=== PATIENT | female | born 1990 | race Two or more races ===

== ENCOUNTER 2017-12-25 22:29 | Observation (INO) | payer SELFPAY ==
[~2017-12-25] VITALS: Ht 165.1 cm; Wt 63.5 kg
[~2017-12-25 22:29] MED LIST: ACET-2007 PO; LOR5/325 PO; Lanolin TP; NITR-105 PO; PHEN200T32 PO; PREN-75 PO; TUCKS TP
[2017-12-25 23:40] LABS: PLATELET COUNT, AUTOMATED 239 K/uL (150-450)
[2017-12-26] MEDS: DLR(*) 1000 ML BAG 1,000 ML IV SCH ×4 (00:05→13:50)
[2017-12-26] MEDS ORDERED: FLUSH 10 ML SYR IVP PRN (00:10)
[2017-12-26] MEDS: FERROUS SULFATE 325 MG TAB PO SCH ×3 (00:47→14:00)
[2017-12-26 00:59] VITALS: BP 97/52; Ht 165.1 cm; Wt 63.5 kg
[2017-12-26] MEDS ORDERED: MULTIVITAMINS (PRENATAL) TAB PO SCH (09:00)
[2017-12-26 09:16] LABS: PLATELET COUNT, AUTOMATED 208 K/uL (150-450)
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
--- NOTE | 2017-12-26 11:20 | RADIOLOGY IMAGING REPORT ---
FACILITY: [facility] PATIENT NAME: Luigi Olmos : 1990 MR: [id number] V: [id number] EXAM DATE: ORDERING PHYSICIAN: RE VU TECHNOLOGIST: Location: [facility] Patient: Luigi Olmos : 1990 Visit/Account:[id number] Date of Sevice: 12/26/2017 Obstetrical ultrasound, greater than 14 weeks. HISTORY: Size and date discrepancy. COMPARISON: None. Number of living intrauterine fetuses: 1. position: Cephalic. Amniotic fluid volume: Normal. PILY: 12.6 cm. heart rate: 149 bpm. Placenta: Right lateral, fundal, anterior. Placenta previa: No. Distance from os to edge placenta: Not measured. BPD: 8.2 cm, 32 weeks 6 days. Head circumference: 29.3 cm, 32 weeks 3 days. Abdominal circumference: 26.8 cm, 31 weeks 0 days. Femur length: 6.4 cm, 33 weeks 0 days. Average age by ultrasound: 32 weeks 3 days. Estimated Weight: 1839 g plus/-269 g. Cervical length: 4.2 cm. A anatomical survey was not performed at this time. The maternal cervix is closed. The maternal ovaries and pelvic vessels are not well visualized. IMPRESSION: Single live intrauterine fetus, 32 weeks 3 days by ultrasound criteria with appropriate size for date s. A anatomical survey was not performed at this time. Results were discussed with RE VU at 12/26/2017 11:14 AM. Report Dictated By: Miki Carolina MD at 12/26/2017 11:05 AM Report E-Signed By: Miki Carolina MD at 12/26/2017 11:15 AM WSN:[id number]
[2017-12-26] MEDS ORDERED: PREN-127 PO (12:48)
[2017-12-26] MEDS ORDERED: DOCU100C49 PO (12:49)
[2017-12-26] MEDS ORDERED: FERR325T24 PO (12:49)
== END 2017-12-26 12:50 | disposition home or self-care (01) ==
LOC: OB 22:29
PROVIDERS: ADMIT Obstetrics & Gynecology; ATTEND Obstetrics & Gynecology
DX: O99.013 Anemia complicating pregnancy, third trimester (principal); R42 Dizziness and giddiness; O26.843 Uterine size-date discrepancy, third trimester; R53.1 Weakness; Z3A.32 32 weeks gestation of pregnancy
CPT/HCPCS: 36415; 59025; 76805; 84443; 85025; G0378; G0379

== ENCOUNTER 2018-01-23 17:39 | Outpatient (CLI) | payer MEDICAID ==
[~2018-01-23] VITALS: Ht 167.6 cm; Wt 64.9 kg
[~2018-01-23 17:39] MED LIST changes: +DOCU100C49 PO; +FERR325T24 PO; +PREN-127 PO
[2018-01-23] MEDS ORDERED: LR(*) 1000 ML BAG 1,000 ML IV PRN (18:07)
[2018-01-23] MEDS ORDERED: ACETAMINOPHEN 500 MG TAB PO ONE (18:10)
[2018-01-23 18:30] VITALS: BP 145/61; Ht 167.6 cm; Wt 64.9 kg
[2018-01-23 18:59] VITALS: BP 114/67
[2018-01-23] MEDS ORDERED: LR(*) 1000 ML BAG 1,000 ML IV SCH (19:40)
[2018-01-23] MEDS ORDERED: APAP/HYDROCODONE 325/5 TAB PO ONE (21:45)
== END 2018-01-23 22:45 | disposition home or self-care (01) ==
LOC: UNDOADMIN 17:39 → OB 17:39 → L&D 17:39 → UNDODISIN 22:45 → L&D 22:45 → EDSTATUS 01-24 16:24
PROVIDERS: ATTEND Student in an Organized Health Care Education/Training Program
DX: O47.03 False labor before 37 completed weeks of gestation, third trimester (principal); Z3A.36 36 weeks gestation of pregnancy
CPT/HCPCS: 81001; G0463; J7120; 99213

== ENCOUNTER 2018-01-25 01:47 | Outpatient (CLI) | payer SELFPAY ==
[2018-01-23 18:30] VITALS: BMI 23.1
[2018-01-25 02:30] VITALS: BP_SYST 118; BP_SYST 119; BP_DIAS 79
[2018-01-25 04:33] LABS: PLATELET COUNT, AUTOMATED 179 K/uL (150-450)
[2018-01-26] MEDS ORDERED: LEVO50TA86 PO (02:19)
== END 2018-01-25 04:42 | disposition home or self-care (01) ==
LOC: OB 01:47 → L&D 01:47 → OB 01:47 → UNDOADMOB 01:47 → UNDODISOB 04:42 → L&D 04:42 → EDSTATUS 01-27 11:52
PROVIDERS: ATTEND Student in an Organized Health Care Education/Training Program
DX: O47.1 False labor at or after 37 completed weeks of gestation (principal); Z3A.37 37 weeks gestation of pregnancy
CPT/HCPCS: 36415; 81001; 85025; 86592; 86703; 86850; 86900; 86901; 87081; 99213; G0378; G0379

== ENCOUNTER 2018-01-25 23:02 | Observation (INO) | payer SELFPAY ==
[2018-01-23 18:30] VITALS: BMI 23.1
[2018-01-25] MEDS ORDERED: LR(*) 1000 ML BAG 1,000 ML IV PRN (23:11)
[2018-01-25 23:30] VITALS: BP 127/77
[2018-01-26] MEDS ORDERED: LEVO50TA86 PO (02:19)
== END 2018-01-26 05:30 | disposition home or self-care (01) ==
LOC: OB 23:02
PROVIDERS: ADMIT Obstetrics & Gynecology; ATTEND Obstetrics & Gynecology
DX: O47.1 False labor at or after 37 completed weeks of gestation (principal); Z3A.37 37 weeks gestation of pregnancy
CPT/HCPCS: 59025; G0378; G0379

== ENCOUNTER 2018-02-08 07:55 | Inpatient (IN) | payer SELFPAY ==
[2018-01-23 18:30] VITALS: Ht 167.6 cm
[~2018-02-08 07:55] MED LIST changes: +LEVO50TA86 PO
[2018-02-08 08:15] VITALS: BP 135/89
[2018-02-08] MEDS ORDERED: FENTANYL/ROPIVACAINE 100 ML BAG EPI PRN (08:25)
[2018-02-08] MEDS ORDERED: EPIDURAL KEYS XX PRN (08:25)
[2018-02-08] MEDS ORDERED: FAMOTIDINE(*) 20MG/50ML PREMIX 50 ML IVPB PRN (08:25)
[2018-02-08] MEDS ORDERED: LR(*) 1000 ML BAG 1,000 ML IV SCH (08:25)
[2018-02-08] MEDS ORDERED: OXYTOCIN 30 UNIT/D5LR 500 ML 500 ML IV PRN (08:25)
[2018-02-08] MEDS ORDERED: ePHEDrine 25 MG/5 ML DISP.SYR IVP PRN (08:25)
[2018-02-08] MEDS ORDERED: BUPIVACAINE 0.25% MPF INJ EPI PRN (08:25)
[2018-02-08] MEDS ORDERED: LIDOCAINE 1% LOCAL 300 MG/30ML INJ PRN (08:25)
[2018-02-08] MEDS ORDERED: fentaNYL CITR 100 MCG/2 ML AMP IVP PRN (08:25)
[2018-02-08] MEDS ORDERED: fentaNYL CITR 100 MCG/2 ML AMP IT PRN (08:25)
[2018-02-08] MEDS ORDERED: LIDOCAINE/PF 2% 200MG/10ML AMP 200 MG/10 ML AMPUL EPI PRN (08:25)
[2018-02-08] MEDS ORDERED: FLUSH 10 ML SYR IVP PRN (08:25)
[2018-02-08] MEDS ORDERED: LIDOCAINE/SOD BICARB 8.4% SYR SC PRN (08:25)
[2018-02-08] MEDS ORDERED: METOCLOPRAMIDE 10 MG/2 ML SDV IVP PRN (08:25)
[2018-02-08] MEDS ORDERED: LR(*) 1000 ML BAG 1,000 ML ONE (08:30)
[2018-02-08 08:40] LABS: PLATELET COUNT, AUTOMATED 205 K/uL (150-450)
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
--- NOTE | 2018-02-08 09:07 | Procedure Note ---
Anesthetic Placement Note Anesthesia Plan: SAB Permit for Anesthesia Signed: Yes Anesthesia Technique: Patient Sitting Anesthesia Prep: Chlorhexidine Interspace: L 3-4 Local Anesthetic: 1% Lidocaine Amount Local - cc's: 1.5 Anesthesia Needle: 17g Thomas/Orionff Anesthesia Attempts: 1 Loss of Resistance: Air Intrathecal Needle: 27 Gauge Pencan Cerebral Spinal Fluid: Yes, Clear Anesthesia Tray: Lot Number ([id number]), Expiration Date (2019-03-15), Reference Number ([id number]) Comment: Pt moved from 5 to complete in 30 minutes. Therefore SAB done. Good relief. Anesthesia Medications: Intrathecal Dose: mcg Fentanyl (50), mg Marcaine MPF (0.25) Complications: None ZULAY MEDRANO CRNA Feb 08, 2018 09:07
[2018-02-08] MEDS ORDERED: GLYCERIN/WITCH HAZEL LEAF 1 PK TP PRN (09:45)
[2018-02-08] MEDS ORDERED: HYDROCORTISONE 2.5% CR 30GM TB PR PRN (09:45)
[2018-02-08] MEDS ORDERED: LANOLIN OINT 7 GM TUBE TP PRN (09:45)
[2018-02-08] MEDS ORDERED: MAGNESIUM HYDROXIDE* 30ML UDCP PO PRN (09:45)
[2018-02-08] MEDS ORDERED: BENZOCAINE 20% 60 ML BTL TP PRN (09:45)
[2018-02-08] MEDS ORDERED: INFLUENZA VIRUS VAC 0.5 ML SYR IM ONLY ONE (09:45)
--- NOTE | 2018-02-08 09:46 | Anesthesia OB Pre-Anes Eval ---
History of Present Illness Anesthesia Start Date: Feb 08, 2018 Anesthesia Start Time: 08:40 OB Anesthesia Diagnosis: spontaneous labor EDC: Feb 14, 2018 : 4 Para: 2 Result Diagram: 02/08/18 0824 Weight (Pounds): 143 BMI Calculated: 23.08 Past Medical History Medical History: no pertinent history Surgical History: other (unknown) Previous Anesthesia: other (unknown) Attended Childbirth Classes?: Other (unknown) Hx Anesthesia Reactions: No Home Meds Reported Medications Levothyroxine Sodium (LEVOTHYROXINE SODIUM) 50 Mcg Tablet, 25 MCG PO QDAY, TAB 01/26/18 Allergies: Coded Allergies: ibuprofen (Verified Allergy, Mild, rash, 12/13/16) kiwi (Verified Allergy, Mild, rash, 12/13/16) michael (Verified Allergy, Mild, rash, 12/13/16) strawberry (Verified Allergy, Mild, rash, 12/13/16) Uncoded Allergies: egg plant (Allergy, Mild, rash, 12/13/16) Anesthesia OB ROS GI ROS: clear liquids ASA Classification: 2, E Assessment and Plan Anesthesia Plan: SAB Assessment: Pt has previously had an epidural without complications. Anesthesia Stop Day: Feb 08, 2018 Anesthesia Stop Time: 09:10 ZULAY MEDRANO CRNA Feb 08, 2018 09:46
--- NOTE | 2018-02-08 09:48 | OB Delivery Note ---
Delivery Note Vaginal Delivery Type: Spont. Vaginal Delivery Delivery Date: Feb 08, 2018 Delivery Time: 09:14 Estimated Gestational Age(wks): 38 Delivery Anesthesia: Other (intrathecal) Infant Weight (gms): 2334 [place] Apgars: 1 Minute (9), 5 Minute (10) Estimated Blood Loss: 100 Delivery Complications: Precipitous Notes: Presented in labor dilated to 5 cm and rapidly progressing. Intrathecal placed at 8 cm and then pt went to complete. My initial exam was LOP and asynclitic but with manual manipulation, rotated baby's head to ZACK. With pushing delivered head over intact perineum. Placenta delivery delayed but ultimately delivered intact and spontaneous. No complications. Tools And Parts Attendant in Attendence: No Copies to: CANDACE MOHAMUD MD, TRAVIS MD Feb 08, 2018 09:48
[2018-02-08 11:19] VITALS: BP 126/74
[2018-02-08 15:00] VITALS: BP 106/57
[2018-02-08] MEDS: ACETAMINOPHEN 325 MG TAB PO PRN (16:56)
[2018-02-08] MEDS: HYDROmorphone HCL 2 MG TAB PO PRN ×2 (18:59→20:50)
[2018-02-08 19:49] VITALS: BP 132/80
[2018-02-08] MEDS: DOCUSATE CALCIUM 240 MG CAP PO SCH (20:50)
[2018-02-08 23:15] VITALS: BP 110/66
[2018-02-09 04:23] VITALS: BP 114/70
[2018-02-09] MEDS: HYDROmorphone HCL 2 MG TAB PO PRN (05:03)
[2018-02-09 06:48] VITALS: BP 116/56
[2018-02-09] MEDS: DOCUSATE CALCIUM 240 MG CAP PO SCH (09:00)
--- NOTE | 2018-02-09 09:35 | OB/GYN Progress Note ---
OB Subjective Progress Notes Subjective Pain controlled, Tolerating diet and activity. Baby . Normal lochia. GI: POS Flatus, NEG Nausea, NEG Vomiting : Voiding Well Pain: Mild OB Objective Physical Exam Vital Signs Date Time Temp Pulse Resp B/P (MAP) Pulse Ox O2 Delivery O2 Flow Rate FiO2 02/09/18 04:23 98.6 72 15 114/70 (85) 02/08/18 23:15 97 Room Air General Appearance: Alert/Awake/No Acute Distress Cardiovascular: Regular Rate and Rhythm Respiratory: No Respiratory Distress, Clear to Auscultation Abdomen: Fundus Firm Extremities: No Edema Psychological: Alert & Oriented X3, Appropriate Mood & Affect Result Diagram: 02/09/18 0613 Assessment and Plan Post Day: 1 X RAY ELECTRONICS WIRING TECHNICIAN Assessment: Stable X RAY ELECTRONICS WIRING TECHNICIAN Plan: Discharge Home Tomorrow Problems: (1) Labor, precipitous (2) care following vaginal delivery Assessment & Plan: Pain controlled, Tolerating diet and activity. Baby . Normal lochia. RE VU MD Feb 09, 2018 09:35
[2018-02-09] MEDS ORDERED: HYDR2TAB4 PO (09:36)
--- NOTE | 2018-02-09 09:37 | OB/GYN Discharge Summary ---
Discharge Summary Reason for Hosp/Final Diag: (1) Labor, precipitous (2) care following vaginal delivery Hospital Course & Plan: VAG DELIVERY ON DAY 1, Pain controlled, Tolerating diet and activity. Baby . Normal lochia. Lates Vital Signs Vital Signs Date Time Temp Pulse Resp B/P (MAP) Pulse Ox O2 Delivery O2 Flow Rate FiO2 02/09/18 04:23 98.6 72 15 114/70 (85) 02/08/18 23:15 97 Room Air Weight (Pounds): 143 Result Diagram: 02/09/18 0613 Condition: Improved Discharge: Home, Self [facility] Meds Active Scripts Hydromorphone Hcl (HYDROMORPHONE HCL) 2 Mg Tablet, 2-4 MG PO Q4H for PAIN, #20 TAB 0 Refills Prov:RE VU MD 02/09/18 Reported Medications Levothyroxine Sodium (LEVOTHYROXINE SODIUM) 50 Mcg Tablet, 25 MCG PO QDAY, TAB 01/26/18 Follow up with: Dr. Jimenez [phone] Follow up in: 6 wks PP or PO Discharge Diet: As Tolerates Discharge Activity: Pelvic Rest Copies to: RE VU MD, JOHN MD Feb 09, 2018 09:37
[2018-02-09] MEDS ORDERED: MEASLES,MUMP,RUBELLA VAC 0.5ML SUBQ ONE (09:45)
[2018-02-09] MEDS ORDERED: DIPHTH/TETANUS/ACEL. PERTUSSIS IM ONLY ONE (09:45)
[2018-02-09 11:30] VITALS: BP 125/68
[2018-02-09] MEDS: ACETAMINOPHEN 325 MG TAB PO PRN (11:49)
[2018-02-09 15:45] VITALS: BP 116/57
== END 2018-02-09 19:00 | disposition home or self-care (01) | DRG 775 ==
LOC: OB 07:55
PROVIDERS: ADMIT Obstetrics & Gynecology; ATTEND Obstetrics & Gynecology
PROC: 10E0XZZ Delivery of Products of Conception, External Approach (ICD-10-PCS; principal; 2018-02-08)
DX: O62.3 Precipitate labor (principal); Z37.0 Single live birth; Z3A.38 38 weeks gestation of pregnancy; Z88.8 Allergy status to other drugs, medicaments and biological substances; Z91.018 Allergy to other foods; Z91.419 Personal history of unspecified adult abuse
CPT/HCPCS: 36415; 85025; 85027; 86850; 86900; 86901; J2590; J3010; J7120